=== PATIENT | female | born 1940 | race Hispanic/Latino ===

== ENCOUNTER → 2019-11-05 | Outpatient (CLI) | payer OTHER, MEDICARE ==
[~2019-11-05] MED LIST: AMLO5TAB9 PO; LOSA1TAB54 PO; PRAV20TA4 PO
== END | disposition home or self-care (01) ==
LOC: RAH 11:32
PROVIDERS: ATTEND Internal Medicine
DX: R91.8 Other nonspecific abnormal finding of lung field (principal); I70.0 Atherosclerosis of aorta; M47.819 Spondylosis without myelopathy or radiculopathy, site unspecified; I10 Essential (primary) hypertension
CPT/HCPCS: 71046

== ENCOUNTER → 2020-08-08 | Outpatient (CLI) | payer OTHER, MEDICARE ==
[~2020-08-08] MED LIST changes: +AMLO-257 PO; -AMLO5TAB9 PO
== END | disposition home or self-care (01) ==
LOC: RAH 15:06
PROVIDERS: ATTEND Internal Medicine
DX: S89.91XD Unspecified injury of right lower leg, subsequent encounter (principal); X58.XXXD Exposure to other specified factors, subsequent encounter; T84.84XD Pain due to internal orthopedic prosthetic devices, implants and grafts, subsequent encounter
CPT/HCPCS: 73562